=== PATIENT | male | born 1945 | race Caucasian/White ===

== ENCOUNTER 2017-08-01 18:20 | Emergency (ER) | payer BC, MEDICARE ==
[~2017-08-01 18:20] MED LIST: Sodium Chloride Irrig Solution 250 ML BOT ONE
[2017-08-01] MEDS ORDERED: Bacitracin Zinc 1 Packet ONE (18:35)
[2017-08-01] MEDS ORDERED: Lidocaine 2% w/Epinephrine 1:200K 20 ML VIAL ONE (18:36)
[2017-08-01] MEDS ORDERED: Adacel (T-DAP) 0.5 ML VIAL ONE (18:46)
[2017-08-01] MEDS ORDERED: Sulfameth/Trimethoprim DS 800-160mg TAB ONE (19:07)
== END 2017-08-01 19:35 | disposition home or self-care (01) ==
LOC: MADERS 18:20
DX: S61.412A Laceration without foreign body of left hand, initial encounter (principal); I10 Essential (primary) hypertension; E78.5 Hyperlipidemia, unspecified; Z23 Encounter for immunization; W22.8XXA Striking against or struck by other objects, initial encounter; Y92.009 Unspecified place in unspecified non-institutional (private) residence as the place of occurrence of the external cause
CPT/HCPCS: 12042; 90471; 90715

== ENCOUNTER 2021-07-15 22:07 | Emergency (ER) | payer MEDICARE ==
[2021-07-15 23:12] LABS: #Lymphocytes 0.9 thou/uL (1.20-3.40); #Monocytes 0.7 thou/uL (0.11-0.59); #Neutrophils 6.3 thou/uL (1.40-6.50); %Basophils 0.3 % (0.0-1.0); %Eosinophils 0.4 % (0.0-10.0); %Lymphocytes 11.3 % (21.0-51.0); %Monocytes 8.3 % (0.0-10.0); %Neutrophils 79.6 % (42.0-75.0); Hemoglobin 13.1 g/dL (14.0-18.0); Mean Corpuscular HGB CONC 30.1 g/dL (32.0-36.0); Mean Corpuscular Hemoglobin 27.3 pg (27.0-31.0); Mean Corpuscular Volume 90.9 fL (78.0-98.0); Mean Platelet Volume 7.2 fL (7.4-10.4); Platelet Count 246 thou/uL (130-400); RBC Distribution Width 13.2 % (11.5-14.5); Red Blood Cell (RBC) Count 4.79 mill/uL (4.70-6.10); White Blood Cell (WBC) Count 7.9 thou/uL (4.8-10.8)
[2021-07-15 23:34] LABS: ALT (SGPT) 28 U/L (8-55); AST (SGOT) 20 U/L (5-34); Alkaline Phosphatase 114 U/L (40-110); Anion Gap 19 mmol/L (10-20); BUN (Urea Nitrogen) 107 mg/dL (8.4-25.7); Bilirubin, Total 0.5 mg/dL (0.2-1.2); Calc. Creatinine Clearance 0 mL/min (70-130); Calcium 9.4 mg/dL (7.8-10.44); Carbon Dioxide 13 mmol/L (23-31); Chloride 112 mmol/L (98-107); Globulin 3.2 g/dL (2.4-3.5); Glucose 145 mg/dL (83-110); Magnesium 3.2 mg/dL (1.6-2.6); Potassium 5.2 mmol/L (3.5-5.1); Protein, Total 7.2 g/dL (5.8-8.1); Sodium 139 mmol/L (136-145)
[2021-07-15] MEDS ORDERED: Sodium Chloride 0.9% 1,000 ML ONE (23:49)
[2021-07-16] MEDS ORDERED: Enoxaparin Sodium 100 MG/ML SYRINGE ONE (00:24)
== END 2021-07-16 01:11 | disposition short-term general hospital (02) ==
LOC: MADERS 22:07
DX: R06.02 Shortness of breath (principal); N17.9 Acute kidney failure, unspecified; E87.5 Hyperkalemia; E83.41 Hypermagnesemia; R11.2 Nausea with vomiting, unspecified; I10 Essential (primary) hypertension; E78.5 Hyperlipidemia, unspecified; E78.00 Pure hypercholesterolemia, unspecified; Z79.899 Other long term (current) drug therapy
CPT/HCPCS: 71046; 80053; 83735; 83880; 84484; 85025; 93005; 96372; J1650; J7050

== ENCOUNTER 2025-01-29 10:43 | Inpatient (IN) | payer MEDICARE ==
[2025-01-29 14:02] VITALS: BMI 31.6
[2025-01-29] MEDS ORDERED: Senokot S 8.6-50 MG TAB PO PRN (17:54)
[2025-01-29] MEDS: QUEtiapine 25 MG TAB PO SCH (19:58)
[2025-01-29] MEDS: Melatonin 3 MG TAB PO SCH (19:59)
[2025-01-29] MEDS: Carvedilol 12.5 MG TAB PO SCH (19:59)
[2025-01-29] MEDS: Chlorhexidine Gluconate 15 ML UDCUP SSP SCH (19:59)
[2025-01-29] MEDS: Acetaminophen 500 MG TAB PO SCH (20:17)
[2025-01-29] MEDS ORDERED: Senokot S 8.6-50 MG TAB PO SCH (21:00)
[2025-01-30] MEDS: Aspirin 81 mg Enteric Coated Tablet PO SCH (10:03)
[2025-01-30] MEDS: Bisacodyl 10 MG SUPP PR SCH (10:04)
[2025-01-30] MEDS: Bacitracin 1 PK TOP SCH (10:04)
[2025-01-30] MEDS: Transdermal Patch Removal TOP SCH (10:12)
[2025-01-30] MEDS: Enoxaparin 40 MG (0.4 mL) SYRINGE SC SCH (20:04)
[2025-01-31 05:12] LABS: Hematocrit 31.7 % (42.0-52.0); Hemoglobin 10.7 g/dL (14.0-18.0); MDiff Complete? YES; Mean Corpuscular Hemoglobin 28.9 pg (27.0-31.0); Mean Corpuscular Volume 86.0 fl (78.0-98.0); Platelet Count 258 10x3/uL (130-400); Red Blood Cell (RBC) Count 3.69 mill/uL (4.70-6.10); White Blood Cell (WBC) Count 6.6 10x3/uL (4.8-10.8)
[2025-01-31 05:26] LABS: Anion Gap 13 mmol/L (10-20); BUN (Urea Nitrogen) 13 mg/dL (8.4-25.7); Calc. Creatinine Clearance 154 mL/min (70-130); Calcium 8.6 mg/dL (7.8-10.44); Carbon Dioxide 22 mmol/L (23-31); Chloride 106 mmol/L (98-107); Glucose 112 mg/dL (83-110); Potassium 3.8 mmol/L (3.5-5.1); Sodium 137 mmol/L (136-145)
[2025-01-31] MEDS ORDERED: Artificial Tear Ophth Sol 15 ML BOT L EYE PRN (11:37)
[2025-01-31] MEDS: Artificial Tear Ophth Sol 15 ML BOT L EYE SCH (12:20)
[2025-01-31 14:03] VITALS: BMI 31.6
[2025-02-01] MEDS: FLU (Fluad Triv) 25-26 (65UP)PF 45 MCG/0.5 ML Syringe IM ONE (09:01)
[2025-02-01] MEDS: PNEUMOC 20-VAL CONJ-DIP CRM/PF 0.5 ML SYRINGE IM ONE (09:02)
[2025-02-03] MEDS: QUEtiapine 25 MG TAB PO SCH (17:26)
[2025-02-03] MEDS: Acetaminophen 500 MG TAB PO PRN (20:10)
[2025-02-04 05:35] LABS: Anion Gap 13 mmol/L (10-20); BUN (Urea Nitrogen) 11 mg/dL (8.4-25.7); Calc. Creatinine Clearance 147 mL/min (70-130); Calcium 9.0 mg/dL (7.8-10.44); Carbon Dioxide 25 mmol/L (23-31); Chloride 107 mmol/L (98-107); Glucose 100 mg/dL (83-110); Potassium 3.6 mmol/L (3.5-5.1); Sodium 141 mmol/L (136-145)
[2025-02-06] MEDS: Senokot S 8.6-50 MG TAB PO PRN (21:01)
[2025-02-11 11:29] VITALS: BP 116/70; TEMP 98.8
== END 2025-02-11 11:58 | disposition home health service (06) | DRG 945 ==
LOC: MADMS 13:28
PROVIDERS: ADMIT Family Medicine; ATTEND Family Medicine
PROC: F07Z9ZZ Gait Training/Functional Ambulation Treatment (ICD-10-PCS; principal; 2025-01-29)
PROC: F08Z0ZZ Bathing/Showering Techniques Treatment (ICD-10-PCS; 2025-01-29)
DX: R53.81 Other malaise (principal); E87.1 Hypo-osmolality and hyponatremia; I10 Essential (primary) hypertension; Z66 Do not resuscitate; E78.5 Hyperlipidemia, unspecified; Z85.46 Personal history of malignant neoplasm of prostate; Z92.3 Personal history of irradiation; Z92.21 Personal history of antineoplastic chemotherapy; Z98.890 Other specified postprocedural states; R26.89 Other abnormalities of gait and mobility; S06.5XAD Traumatic subdural hemorrhage with loss of consciousness status unknown, subsequent encounter; S36.09XD Other injury of spleen, subsequent encounter; V89.2XXD Person injured in unspecified motor-vehicle accident, traffic, subsequent encounter; S12.500D Unspecified displaced fracture of sixth cervical vertebra, subsequent encounter for fracture with routine healing; S22.019D Unspecified fracture of first thoracic vertebra, subsequent encounter for fracture with routine healing; S02.401D Maxillary fracture, unspecified side, subsequent encounter for fracture with routine healing; R41.0 Disorientation, unspecified; Z79.899 Other long term (current) drug therapy; Z79.82 Long term (current) use of aspirin
CPT/HCPCS: 36415; 70450; 80048; 85025; J1650